=== PATIENT | female | born 1990 | race Caucasian/White ===

== ENCOUNTER 2016-11-10 12:44 | Emergency (ER) | payer OTHER ==
[2016-11-10 14:53] VITALS: BP 129/70
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
[2016-11-10] MEDS ORDERED: Acetaminophen TAB* 325 MG PO ONE (15:12)
== END 2016-11-10 15:25 | disposition home or self-care (01) ==
LOC: UCEAST 12:44
DX: J02.0 Streptococcal pharyngitis (principal); E66.9 Obesity, unspecified; F17.210 Nicotine dependence, cigarettes, uncomplicated
CPT/HCPCS: 87651; 99212; A9270-GY; G0463

== ENCOUNTER 2017-08-19 12:41 | Emergency (ER) | payer OTHER ==
[2017-08-19 13:47] VITALS: BP 150/68
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
== END 2017-08-19 14:55 | disposition home or self-care (01) ==
LOC: UCEAST 12:41
DX: H66.93 Otitis media, unspecified, bilateral (principal); R03.0 Elevated blood-pressure reading, without diagnosis of hypertension; J45.909 Unspecified asthma, uncomplicated; F17.210 Nicotine dependence, cigarettes, uncomplicated; Z91.030 Bee allergy status; Z91.011 Allergy to milk products; Z91.018 Allergy to other foods
CPT/HCPCS: 99212; G0463

== ENCOUNTER 2017-09-27 11:36 | Emergency (ER) | payer OTHER ==
[2017-09-27 14:05] VITALS: BP 111/54
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
== END 2017-09-27 14:27 | disposition home or self-care (01) ==
LOC: UCEAST 11:36
DX: J02.0 Streptococcal pharyngitis (principal); J45.909 Unspecified asthma, uncomplicated; F17.210 Nicotine dependence, cigarettes, uncomplicated
CPT/HCPCS: 87651; 99212; G0463